=== PATIENT | female | born 1965 | race Caucasian/White ===

== ENCOUNTER 2019-08-26 08:58 | Outpatient (RCR) | payer BC, OTHER ==
[~2019-08-26 08:58] MED LIST: FLEXERIL 1010 MG/TAB PO; NAPROSYN500 MG PO; NO HOME MEDICATIONS; PERCOCET 325 MG1 TA2 PO
== END 2019-11-24 | disposition still patient (30) ==
LOC: MKS.ESL.PT
DX: H81.11 Benign paroxysmal vertigo, right ear (principal)